=== PATIENT | male | born 1995 | race African-American/Black ===

== ENCOUNTER 2021-09-02 16:12 | Emergency (ER) | payer MEDICAID, SELFPAY ==
[2021-09-02 16:13] VITALS: BP 163/96; PULSE 94; RESP 16; TEMP 36.8; O2SAT 98; BMI 40.7
[2021-09-02] MEDS: Diphth,Pertuss(Acell),Tet Vac 0.5 ML Vial IM (16:35)
[2021-09-02] MEDS: Lidocaine 1% (20 ml mdv) 20 ML Vial INFILT (16:37)
--- NOTE | 2021-09-02 16:39 | EX.ED.UPPERE ---
HPI History of Present Illness Chief Complaint: Laceration Informant: patient Narrative Narrative: 26-year-old male cut his right thumb on a bowl. Unknown last tetanus. He states he could not get it to stop bleeding. Tetanus Immunization: Unknown PFSH PFS no medical history Home Medications NK 09/02/21 [History Last Taken Unknown] Allergy/AdvReac Type Severity Reaction Status Date / Time No Known Allergies Allergy Verified 09/02/21 16:34 Surgical History (Updated 09/02/21 @ 16:40 by Keyona Kennedy) History of ear surgery History of skin graft Social History (Updated 09/02/21 @ 16:[address] Gio Killian, DO) current gender identity: male substance use type: does not use ROS ROS ED Constitutional Constitutional ED: Denies chills or weight loss Eyes Eyes: Denies change in vision or diplopia ENT ENT ED: Denies ear pain, rhinorrhea or sore throat Cardiovascular Cardiovascular: Denies chest pain, orthopnea, palpitations or racing heartbeat Respiratory/Chest Respiratory/Chest: Denies cough, dyspnea or orthopnea Gastrointestinal Gastrointestinal: Denies abdominal pain, diarrhea, nausea or vomiting Genitourinary Genitourinary ED: Denies dysuria, hematuria or urinary frequency Musculoskeletal Musculoskeletal: Denies arthralgias or myalgias Integumentary Denies abscess or rash Neurologic Neurologic: Denies headache(s) or weakness Psychiatric Psychiatric: Denies anxiety, depression, suicidal ideation or suicidal thoughts Endocrine Endocrinology: Denies polydipsia, polyphagia or polyuria Allergic/Immunologic Allergic/Immunologic ED: Denies mouth swelling, tongue swelling or urticaria EXAM Physical Exam Const Vital Signs: 09/02/21 16:13 Temperature 98.2 F Temperature Source Temporal Pulse Rate 94 Respiratory Rate 16 Blood Pressure 163/96 H Blood Pressure Mean 118 Pulse Ox 98 Oxygen Delivery Method Room Air Positive well nourished and well developed General Appearance ED: well developed HEENT Reports normocephalic, head/scalp atraumatic and moist mucous membranes Eyes PERRL and EOMs intact bilaterally Neck no lymphadenopathy, supple and no JVD Resp normal respiratory effort and clear to auscultation bilaterally Cardio regular rate, regular rhythm and no murmurs GI normal to inspection, nondistended, normoactive bowel sounds and non-tender Palpation: soft Back/Spine no CVA tenderness and normal ROM Extremity full ROM General Extremety ED: Negative for edema General Extremity: Negative for edema Neuro oriented x3 and CN's II-XII intact bilaterally Sensorium / Orientation: alert Motor Exam: strength 5/5 throughout Psych mental status grossly normal Mood & Affect: Negative for depressed or tearful Skin no rashes or lesions noted and no wounds Skin Narrative: There is a 1.5 cm laceration to the fat pad of the right thumb. No active bleeding. The wound is gaping. Neurovascular intact. No tendon deficits MDM MDM MDM Narrative Medical decision making narrative: The wound was locally anesthetized using 1% lidocaine washed with Shur-Clens and explored. It was closed using a total of 3 simple erupted 4-0 Ethilon sutures. Wound care discussed with patient who notes understanding. Stitches need to be removed 7 to 10 days Discharge Plan Triage Chief Complaint: Laceration ED Provider: Gio Killian Dx/Rx/DC Orders Clinical Impression: Laceration of right thumb Instructions: ED Laceration, Hand: All Closures Prescriptions: No Action NK RF: 0 Primary Care Provider: NOT,DEFINED Referrals: NOT,DEFINED [Primary Care Provider] - Clinic,NOW [NON-STAFF] - 7 Days for suture removal Disposition Disposition: Home, Self Care
== END 2021-09-02 17:15 | disposition home or self-care (01) ==
LOC: ED 17:02
PROVIDERS: Emergency Provider Emergency Medicine
DX: S61.011A Laceration without foreign body of right thumb without damage to nail, initial encounter (principal); Z23 Encounter for immunization; W45.8XXA Other foreign body or object entering through skin, initial encounter; Y93.9 Activity, unspecified; Y92.9 Unspecified place or not applicable; Y99.9 Unspecified external cause status
CPT/HCPCS: 12001; 90715; 99282